=== PATIENT | female | born 2000 | race Caucasian/White ===

== ENCOUNTER 2019-09-15 05:14 | Emergency (ER) | payer OTHER, SELFPAY ==
[2019-09-15 05:17] VITALS: BP 109/57; PULSE 93; RESP 18; TEMP 36.6; O2SAT 99
--- NOTE | 2019-09-15 06:18 | ED.FEMALEGU ---
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 Patient states that abscess is been present for the past 2 weeks. States she is currently 28 weeks and followed by MATERIAL CONTROL CLERK in [place]. Patient states the bump has become more painful and large. She reports subjective fevers but denies any measured fevers. Denies any abdominal pain, vaginal bleeding vaginal discharge or any other symptoms. She has had no previous evaluation for the abscess Related Data Allergies Allergy/AdvReac Type Severity Reaction Status Date / Time No Known Allergies Allergy Unverified 04/01/19 22:47 Review of Systems Review of Systems: Narrative: Gen.: Denies fevers or chills ENT: Denies congestion Respiratory: Denies shortness of breath or cough CV: Denies chest pain or palpitations GI: Denies abdominal pain nausea, emesis or diarrhea see HPI Musculoskeletal: Denies back pain or muscle pain Neuro: Denies numbness, tingling, weakness or focal weakness Skin: Reports abscess Except as documented, all other systems reviewed and negative [facility] Past Medical History Medical History (Updated 09/15/19 @ 07:39 by Israel Powell DO) Social History Social History (Updated 09/15/19 @ 06:20 by Israel Powell DO) Smoking status: Never smoker Exam Narrative: Exam Narrative: APPEARANCE: No acute distress, nontoxic, resting in bed EYES: EOMI HEENT: Normocephalic, atraumatic, OMM RESPIRATORY: No respiratory distress ABDOMINAL: Soft, nontender, nondistended, no rebound or guarding MUSCULOSKELETAl: Moves all extremities. NEURO: Awake and alert. Following commands, speech normal, no focal deficits SKIN:: Warm, dry. In the left mons pubis just medial to the inguinal crease there is an area of tenderness with mild swelling and erythema, the area is firm with no drainage or fluctuance, erythema does not extend into the groin or to the vagina, PSYCHIATRIC: Normal affect/mood, Course Course Emergency Course: Discussed with patient results of workup and diagnosis. Discussed need for follow-up with primary care, proper use of medication, and reasons to return to the emergency department. Patient understands and agrees to current treatment plan Vital Signs Vital signs: Vital Signs Temperature 97.8 F 09/15/19 05:17 Pulse Rate 93 09/15/19 05:17 Respiratory Rate 18 09/15/19 05:17 Blood Pressure 109/57 L 09/15/19 05:17 Pulse Oximetry 99 09/15/19 05:17 Temperature 97.8 F 09/15/19 05:17 Pulse Rate 93 09/15/19 05:17 Respiratory Rate 18 09/15/19 05:17 Blood Pressure 109/57 L 09/15/19 05:17 Pulse Oximetry 99 09/15/19 05:17 MDM - Female Genitourinary MDM Narrative Medical decision making narrative: Patient with area of swelling and tenderness appears to be an infected hair as pubic hair is in the region. There is no current fluctuance or drainage and at this time is not felt that an I&D is indicated his area is firm will start on antibiotics and follow-up as an outpatient with MATERIAL CONTROL CLERK Discharge Plan Discharge Clinical Impression: Abscess of groin, left Patient Disposition: Home, Self-Care Condition: Stable Instructions: Antibiotic Form, Abscess (ED) Additional Instructions: Return for increasing pain, fever or any other symptoms of concern. Follow-up with your MATERIAL CONTROL CLERK in 1 to 2 days for further treatment and evaluation Prescriptions: New cephalexin [Keflex] 500 mg capsule 500 mg PO Q6H Qty: 40 RF: 0 Follow-up/Referrals: Beckie,Richie Cano MD [Primary Care Provider] - 2 Days Time of Disposition: 07:40
[2019-09-15] MEDS: CEPHALEXIN 500 MG CAPSULE PO (07:18)
== END 2019-09-15 08:30 | disposition home or self-care (01) ==
PROVIDERS: Emergency Provider Emergency Medicine; PCP Family Medicine
DX: O99.712 Diseases of the skin and subcutaneous tissue complicating pregnancy, second trimester (principal); L02.214 Cutaneous abscess of groin; Z3A.28 28 weeks gestation of pregnancy
CPT/HCPCS: 99283; A9270

== ENCOUNTER 2019-12-04 12:22 | Emergency (ER) | payer OTHER, SELFPAY ==
[2019-12-04 12:44] VITALS: BP 113/67; PULSE 89; RESP 16; TEMP 37.1; O2SAT 100
--- NOTE | 2019-12-04 12:58 | ED.EXTPRO ---
HPI - Extremity Problem General Chief complaint: Extremity Problem,Nontraumatic Stated complaint: left foot swollen Time Seen by Provider: 12/04/19 12:58 Source: patient and RN notes reviewed History of Present Illness HPI Narrative: Patient is a 19-year-old female that presents the urgent care with complaints of lower extremity swelling. 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 Patient states that she has been home for the last day or 2 and she noticed the swelling last night. Patient states that she has been resting and has not been up on her feet. States that she is currently not breast-feeding and has been increasing her water intake. Patient states that this is her first child. States that the child was breech, requiring the . Otherwise, denies of any complications. No other acute complaints. Denies of any shortness of breath or chest pain. No acute distress noted. Patient read the plan of care. Related Data Home Medications Medication Instructions Recorded Confirmed ferrous sulfate 325 mg PO DAILY 12/04/19 12/04/19 ibuprofen 800 mg Q8-10H PRN 12/04/19 12/04/19 ondansetron 8 mg Q8-10H PRN 12/04/19 12/04/19 oxycodone-acetaminophen 1 tablet Q4-6H PRN 12/04/19 12/04/19 Allergies Allergy/AdvReac Type Severity Reaction Status Date / Time No Known Allergies Allergy Verified 12/04/19 12:47 Review of Systems Review of Systems: Narrative: CONSTITUTIONAL: Denies fever, chills, or sweats. EYES: Denies visual changes, redness, or discharge. ENT: Denies rhinorrhea, congestion, sore throat, or otalgia. CARDIOVASCULAR: Denies chest pain, palpitations, or edema. RESPIRATORY: Denies cough or dyspnea. GASTROINTESTINAL: Denies abdominal pain, nausea, vomiting, or diarrhea. GENITOURINARY: Denies dysuria or hematuria. SKIN: Denies rash or itching. MUSCULOSKELETAL: Reports of bilateral lower extremity swelling NEUROLOGIC: Denies headache, numbness, or weakness. All other systems reviewed are negative, except as documented in HPI. [facility], [facility] Past Medical History Medical History (Updated 12/04/19 @ 13:03 by RICKEY Hester) Social History Social History (Updated 09/15/19 @ 06:20 by NATY Perez Smoking status: Never smoker Gender identity (if verbalized by the patient): Female Comments At the time of my signature, I reviewed and agree with the nursing past medical, surgical, social, and family history. There is no relevant family history pertinent to the patient complaint. Exam Narrative: Exam Narrative: GENERAL: This is a well-nourished, well-developed patient, in no apparent distress. HEAD: normocephalic, atraumatic. EYES: PERRL. Sclera clear/white. Vision is grossly intact. EARS: External ears normal NOSE: External nose normal with no obvious nasal discharge THROAT: Mucous membranes moist NECK: Neck supple CARDIOVASCULAR: Regular rate and rhythm without murmurs, gallops, or rubs. RESPIRATORY: Clear to auscultation. Breath sounds equal bilaterally. No wheezes, rales, or rhonchi. SKIN: warm, intact with no suspicious lesions or rash, good texture and turgor. NEURO: awake, alert, and oriented to person, place and time. There were no obvious focal neurologic abnormalities. EXTREMITIES: 2+ bilateral lower extremity edema (feet) with positive bilateral pedal pulses and capillary refill less than 2 seconds to lower extremities Course Vital Signs Vital signs: Vital Signs Temperature 98.8 F 12/04/19 12:44 Pulse Rate 89 12/04/19 12:44 Respiratory Rate 16 12/04/19 12:44 Blood Pressure 113/67 12/04/19 12:44 Pulse Oximetry 100 12/04/19 12:44 Temperature 98.8 F 12/04/19 12:44 Pulse Rate 89 12/04/19 12:44 Respiratory Rate 16 12/04/19 12:44 Blood Pressure 113/67 12/04/19 12:44 Pulse Oximetry 100 12/04/19 12:44 Reviewed MDM - Extremity (Nontraumatic) MDM Narrative Medical decision making narrative: Advised the patient to
== END 2019-12-04 13:05 | disposition home or self-care (01) ==
PROVIDERS: Emergency Provider Nurse Practitioner Family; PCP Family Medicine
DX: O90.89 Other complications of the puerperium, not elsewhere classified (principal); R60.9 Edema, unspecified
CPT/HCPCS: 99211; G0463

== ENCOUNTER 2021-04-19 10:43 | Emergency (ER) | payer OTHER, SELFPAY ==
--- NOTE | ~2021-04-19 | XR_ITS ---
EXAMINATION: XR hand LT min 3V DATE: 04/19/2021 11:59 INDICATION: Pain around the base of the left thumb post fall TECHNIQUE: Posteroanterior, oblique and lateral views of the left hand were obtained. COMPARISON: None. FINDINGS: Alignment is normal. No fracture. Joint spaces are normal. Soft tissues are unremarkable. IMPRESSION: 1. Negative left hand radiographs. Reviewed, dictated and finalized at location A.
[2021-04-19 11:47] VITALS: BP 110/69; PULSE 75; RESP 16; TEMP 36.9; O2SAT 99
--- NOTE | 2021-04-19 12:53 | ED.UPPEXIN ---
HPI - Extremity Injury (Upper) General Chief Complaint: Extremity Injury, Upper Stated Complaint: left hand injury History of Present Illness HPI narrative: This is a 21-year-old female comes in complaining of right hand pain according to patient she fell yesterday and put her hand down when she went down for the fall she wants to make sure that she does not have any fracture because is painful Related Data Home Medications Medication Instructions Recorded Confirmed ferrous sulfate 325 mg PO DAILY 12/04/19 12/04/19 ibuprofen 800 mg Q8-10H PRN 12/04/19 12/04/19 famotidine 04/19/21 Allergies Allergy/AdvReac Type Severity Reaction Status Date / Time No Known Allergies Allergy Verified 12/04/19 12:47 Review of Systems Review of Systems: Extremity: Right hand and thumb pain with small amount of swelling All systems reviewed & are unremarkable except as noted in HPI and below PMFSH Past Medical History Medical History (Updated 04/19/21 @ 12:54 by Seun Connor, EDENILSON) Social History Social History (Updated 09/15/19 @ 06:20 by Israel Powell DO) Smoking status: Never smoker Gender identity (if verbalized by the patient): Female Comments At time as signature, I have reviewed and agree with nursing past medical, social, surgical and family history. Please see nursing chart for further information. There is no relevant family history pertinent to the presenting complaint. Exam Narrative: GENERAL:Well-appearing, well-nourished, and in no acute distress. HEAD:Normocephalic, atraumatic. EYES: PERRLA and EOMI. ENT: Nares clear, no rhinorrhea or epistaxis. Mucous membranes moist. NECK: Supple. CHEST: Clear to auscultation. No respiratory distress. HEART: Regular rate and rhythm. ABDOMEN: Soft, nontender, nondistended, normal active bowel sounds. EXTREMITIES: Decreased range of motion right hand motion due to pain with mild edema. SKIN: Warm, dry, no rash. NEURO: No focal deficits. Alert and oriented x3. 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 Negative for fracture Vital Signs Vital signs: Vital Signs Temperature 98.4 F 04/19/21 11:47 Pulse Rate 75 04/19/21 11:47 Respiratory Rate 16 04/19/21 11:47 Blood Pressure 110/69 04/19/21 11:47 Pulse Oximetry 99 04/19/21 11:47 Temperature 98.4 F 04/19/21 11:47 Pulse Rate 75 04/19/21 11:47 Respiratory Rate 16 04/19/21 11:47 Blood Pressure 110/69 04/19/21 11:47 Pulse Oximetry 99 04/19/21 11:47 MDM - Extremity Injury (Upper) Differential Diagnosis Differential diagnosis: Likely sprain and strain of wrist, finger sprain, dislocation of finger, fracture of hand, dislocation of shoulder and fracture of humerus Discharge Plan Discharge Clinical Impression: Sprain of hand, right Qualifiers: Encounter type: initial encounter Qualified Code(s): S63.91XA - Sprain of unspecified part of right wrist and hand, initial encounter Patient Disposition: Home, Self-Care Condition: Stable Instructions: Antibiotic Form, Hand Sprain (ED) Additional Instructions: Avoid weight bearing until the pain subsides. Ice to the area 20-30 minutes 4-6 times a day Elevate above heart Elastic wrap or orthopedic splint as directed for comfort for the next 5-7 days Tylenol for lesser pain Ibuprofen regularly for the next 2-3 days for the inflammation Follow up with your primary care provider if the condition is not improving within 1 week or sooner if the condition worsens with numbness, tingling, decrease sensation with weakness to seek ER. Prescriptions: New ibuprofen 600 mg tablet 600 mg PO TID PRN (Reason: fever or pain) Qty: 20 RF: 0 No Action famotidine 40 mg Tablet RF: 0 ibuprofen 800 mg tablet 800 mg Q8-10H PRN (Reason: Pain) RF: 0 ferrous sulfate 325 mg (65 mg iron) tablet,delayed release (DR/EC) 325 mg PO DAILY RF: 0 Follow-up/Referrals: UNKNOWN,DOCTOR [Primary Care Provider] -
== END 2021-04-19 13:16 | disposition home or self-care (01) ==
PROVIDERS: Emergency Provider Nurse Practitioner Family
DX: S63.91XA Sprain of unspecified part of right wrist and hand, initial encounter (principal); Z79.1 Long term (current) use of non-steroidal anti-inflammatories (NSAID); W19.XXXA Unspecified fall, initial encounter
CPT/HCPCS: 73130; 99213; G0463

== ENCOUNTER 2021-05-23 09:35 | Emergency (ER) | payer OTHER, SELFPAY ==
[2021-05-23 09:44] VITALS: BP 138/75; PULSE 79; RESP 18; TEMP 36.9; O2SAT 99
--- NOTE | 2021-05-23 10:15 | ED.GENADULT ---
HPI - General Adult General Chief complaint: Wound/Laceration <Sharan Kaur PA-C - Last Filed: 05/23/21 10:24> Stated complaint: finger lac <Sharan Kaur PA-C - Last Filed: 05/23/21 10:24> Time Seen by Provider: 05/23/21 09:36 <Sharan Kaur PA-C - Last Filed: 05/23/21 10:24> Source: patient <Sharan Kaur PA-C - Last Filed: 05/23/21 10:24> Mode of arrival: ambulatory <Sharan Kaur PA-C - Last Filed: 05/23/21 10:24> Limitations: no limitations <Sharan Kaur PA-C - Last Filed: 05/23/21 10:24> History of Present Illness HPI narrative: Patient a 23-year-old female who presents with skin avulsion to the distal phalanx left ring finger that occurred while slicing apples she notes aching pain worse with touch and activity. Denies any other complaints or injuries. Occurred just prior to arrival <Sharan Kaur PA-C - Last Filed: 05/23/21 10:24> Related Data Home medications: Home Medications Medication Instructions Recorded Confirmed ferrous sulfate 325 mg PO DAILY 12/04/19 12/04/19 ibuprofen 800 mg Q8-10H PRN 12/04/19 12/04/19 famotidine 04/19/21 <Sharan Kaur PA-C - Last Filed: 05/23/21 10:24> Allergies/adverse reactions: Allergies Allergy/AdvReac Type Severity Reaction Status Date / Time No Known Allergies Allergy Verified 05/23/21 09:54 <Sharan Kaur PA-C - Last Filed: 05/23/21 10:24> Review of Systems Review of Systems: CONSTITUTIONAL: Denies fever, chills, or sweats. SKIN: Positive for skin avulsion. MUSCULOSKELETAL: Denies decreased range of motion or strength NEUROLOGIC: Denies numbness, or weakness. <Sharan Kaur PA-C - Last Filed: 05/23/21 10:24> PMFSH Past Medical History Medical History: Medical History <Sharan Kaur PA-C - Last Filed: 05/23/21 10:24> Social History Social History: Social History Smoking status: Never smoker Gender identity (if verbalized by the patient): Female <Sharan Kaur PA-C - Last Filed: 05/23/21 10:24> Exam Narrative: GENERAL: Well-appearing, well-nourished, and in no acute distress. HEAD: Normocephalic, atraumatic. EYES: PERRLA and EOMI. ENT: Nares clear, no rhinorrhea or epistaxis. Mucous membranes moist. EXTREMITIES: Normal range of motion. No edema. SKIN: Warm, dry, no rash. 1 cm skin avulsion of the distal phalanx of the left ring finger superficial in nature NEURO: No focal deficits. Alert and oriented x3. Neurovascularly intact PSYCH: Normal mood and affect. <Sharan Kaur PA-C - Last Filed: 05/23/21 10:24> Course Course Emergency Course: Patient evaluated the emergency department had hemostasis achieved with LAT Surgicel 4 x 4 and Coban and she will follow up accordingly given reasons to return ABCs and vital signs intact and stable <Sharan Kaur PA-C - Last Filed: 05/23/21 10:24> Vital Signs Vital signs: Vital Signs Temperature 98.5 F 05/23/21 09:44 Pulse Rate 79 05/23/21 09:44 Respiratory Rate 18 05/23/21 09:44 Blood Pressure 138/75 05/23/21 09:44 Pulse Oximetry 99 05/23/21 09:44 Temperature 98.5 F 05/23/21 09:44 Pulse Rate 64 05/23/21 10:43 Respiratory Rate 18 05/23/21 10:43 Blood Pressure 100/70 05/23/21 10:43 Pulse Oximetry 100 05/23/21 10:43 <TERESA Alexander Last Filed: 05/23/21 10:24> Procedures Other Procedure Procedure 1: Other Procedure: Patient's wound was cleaned let Surgicel 4 x 4 and Coban used to achieve hemostasis neurovascularly intact pre and post procedure no complications <TERESA Alexander Last Filed: 05/23/21 10:24> Medical Decision Making MDM Narrative Medical decision making narrative: Patients injury or pain is consistent with musculoskeletal etiology. No signs of neurolog
--- NOTE | 2021-05-23 10:40 | PC.NURSE ---
dressing intact no bleeding noted
[2021-05-23 10:43] VITALS: BP 100/70; PULSE 64; RESP 18; O2SAT 100
== END 2021-05-23 10:50 | disposition home or self-care (01) ==
PROVIDERS: Emergency Provider General Practice; PCP Family Medicine
DX: S61.215A Laceration without foreign body of left ring finger without damage to nail, initial encounter (principal); W26.0XXA Contact with knife, initial encounter
CPT/HCPCS: 99282

== ENCOUNTER 2021-06-03 16:16 | Emergency (ER) | payer OTHER, SELFPAY ==
--- NOTE | 2021-06-03 16:21 | ED.URI ---
HPI - URI/Sore Throat General Chief Complaint: Upper Respiratory Infection Stated Complaint: Cough,Sore Throat Time Seen by Provider: 06/03/21 16:21 Source: patient, RN notes reviewed and old records reviewed Mode of arrival: ambulatory Limitations: no limitations History of Present Illness HPI Narrative: 21-year-old female presents to the [facility] with complaints of cough and sore throat for the last 3 days. MD elicited complaint: cough and sore throat Related Data Allergies Allergy/AdvReac Type Severity Reaction Status Date / Time No Known Allergies Allergy Verified 06/03/21 16:22 Review of Systems Review of Systems: All systems reviewed & are unremarkable except as noted in HPI and below Constitutional: Constitutional: Reports no additional constitutional complaints, Denies chills and Denies fever(s) Eyes: Eyes: Reports no additional eye complaints ENT: Reports as per HPI and Reports sore throat Cardiovascular: Cardiovascular: Reports no additional cardiovascular complaints and Denies chest pain Respiratory: Respiratory: Reports as per HPI, Reports cough, Denies dyspnea and Denies wheezing Gastrointestinal: Gastrointestinal: Reports no additional gastrointestinal complaints Genitourinary: Genitourinary: Reports no additional female genitourinary complaints Musculoskeletal: Musculoskeletal: Reports no additional musculoskeletal complaints Integumentary/Breasts: Skin/Breast: Reports system reviewed and no additional complaints, except as docu Neurologic: Reports system reviewed and no additional complaints, except as documented Hematologic/Lymphatic: Hematologic/Lymphatic: Reports no additional hematologic/lymphatic complaints PMFSH Past Medical History Medical History Social History Social History Smoking status: Never smoker Gender identity (if verbalized by the patient): Female Comments At the time of my signature, I reviewed and agree with the nursing past medical, surgical, social, and family history. There is no relevant family history pertinent to the patient complaint. Exam Const: General: healthy appearing, no acute distress and alert Nutritional Appearance: well nourished Orientation/consciousness: patient oriented x3 Limitations: no limitations and other limitations (Influence by marijuana) HENMT: Head: normal to inspection Ears: external ears normal, TM's normal bilaterally (Scarring noted from tubes as a child) and EAC's normal General nose exam: Normal external nose present Face and sinus: normal facial exam Mouth: Yes Normal oral and palatal mucosa present and Yes lip normal Teeth and gingiva: dentition normal Throat: posterior oropharynx normal, uvula midline and tonsils absent Eyes: Conjunctivae: conjunctivae normal Pupils: Equal, round and reactive pupils present Neck: Neck: normal visual inspection, no lymphadenopathy and no meningeal signs Chest: Chest palpation & inspection: normal inspection of the chest Resp: Effort & Inspection: normal respiratory effort and no use of accessory muscles Auscultation: clear to auscultation bilaterally, no crackles, no rales, no rhonchi and no wheezes Cardio: Rate: regular rate Rhythm: regular rhythm Back/Spine/Pelvis: Back: no CVA tenderness Skin: General skin exam: normal color Rashes: no rashes Neuro: General: patient oriented x3, moves all extremities, no meningeal signs and no focal motor deficits Speech: normal speech Gait exam (Neuro): Normal gait present Extrem: General: normal to inspection Psych: Appearance: grossly normal and well kempt Mental Status: mental status grossly normal Affect: normal affect Attitude: cooperative Thought content: Yes Normal thought content present Course Course Emergency Course: Discharge instructions reviewed with patient, as well as provided in writing per nursing staff. The
[2021-06-03 16:24] VITALS: BP 111/50; PULSE 85; RESP 16; TEMP 37.5; O2SAT 99
[2021-06-03 16:33] VITALS: BP 111/50; PULSE 85; RESP 16; TEMP 37.5; O2SAT 99
== END 2021-06-03 16:44 | disposition home or self-care (01) ==
PROVIDERS: Emergency Provider Nurse Practitioner; PCP Family Medicine
DX: J02.8 Acute pharyngitis due to other specified organisms (principal); K21.9 Gastro-esophageal reflux disease without esophagitis
CPT/HCPCS: 87081; 87880; 99213; G0463

== ENCOUNTER 2021-12-27 12:16 | Emergency (ER) | payer OTHER, SELFPAY ==
[2021-12-27 12:25] VITALS: BP 114/61; PULSE 87; RESP 18; TEMP 36.8; O2SAT 98
--- NOTE | 2021-12-27 12:25 | ED.URI ---
HPI - URI/Sore Throat General Chief Complaint: Upper Respiratory Infection Stated Complaint: sore throat Time Seen by Provider: 12/27/21 12:25 Source: patient and RN notes reviewed Mode of arrival: ambulatory Limitations: no limitations History of Present Illness HPI Narrative: 21-year-old female presented for complaint of left ear pain and sore throat for 3 days. She states at the onset she had a fever, sinus congestion, and vomiting which has since improved. Fever was 101 at home. She denies cough, shortness of breath, wheezing, headache, body aches. She denies sick contacts. She has not been vaccinated for COVID. She has been vaccinated for the flu. She has not taken anything for her symptoms. Daily smoker. MD elicited complaint: cough Related Data Home Medications Medication Instructions Recorded Confirmed No Home Medications 12/27/21 12/27/21 Allergies Allergy/AdvReac Type Severity Reaction Status Date / Time No Known Allergies Allergy Verified 06/03/21 16:22 Review of Systems Review of Systems: CONSTITUTIONAL: denies malaise EYES: Denies visual changes, redness, or discharge ENT: Reports otalgia, sore throat CARDIOVASCULAR: Denies chest pain, palpitations, edema RESPIRATORY: Denies dyspnea GASTROINTESTINAL: Denies abdominal pain, nausea SKIN: Denies rash or itching MUSCULOSKELETAL: Denies myalgia NEUROLOGIC: Denies headache PMFSH Past Medical History Medical History Social History Social History Smoking status: Never smoker Gender identity (if verbalized by the patient): Female Exam Narrative: GENERAL: well-appearing HEAD: Normocephalic EYES: conjunctivae clear ENT: Mucous membranes moist. TMs pearly higginbotham with normal light reflex bilaterally, canals without erythema; no tragal tenderness. Oropharynx erythematous without lesions or exudate, tonsils absent; no drooling, no hoarseness, no trismus, uvula midline. No tripod positioning, muffled voice, soft palate or pharyngeal wall bulging NECK: Supple. No lymphadenopathy CHEST: Clear to auscultation, breath sounds equal. HEART: Regular rate and rhythm. No murmur heard. SKIN: Warm, dry, no rash. NEURO: Alert and oriented x3. PSYCH: Normal mood and affect Course Course Emergency Course: Patient is aware of diagnosis, understands and agrees to treatment plan. Anticipatory guidance given. Patient agrees to follow-up as directed and is aware of reasons to seek care at the emergency department. Portions of this record may have been created with voice recognition software Level of Care: Express Care Visit Vital Signs Vital signs: reviewed MDM - URI/Sore Throat MDM Narrative Medical decision making narrative: Pt presented for sore throat and left ear pain, PE unremarkable. Strep negative. Differential Diagnosis Differential diagnosis: Likely upper respiratory infection, sinusitis and viral infection Discharge Plan Discharge Clinical Impression: Allergic rhinitis Qualifiers: Allergic rhinitis trigger: unspecified Allergic rhinitis seasonality: seasonal Qualified Code(s): J30.2 - Other seasonal allergic rhinitis Patient Disposition: Home, Self-Care Condition: Stable Instructions: Antibiotic Form, Allergic Rhinitis (ED) Additional Instructions: Rapid strep swab was negative today You will be notified in a few days if the culture comes back positive for strep, and appropriate antibiotics will be called in at that time. if symptoms are due to a viral illness, it is not treated with antibiotics. Viral symptoms can be present for up to 10-14 days. Recommend Flonase spray and Zyrtec for sinus congestion Tylenol 1000mg every 8 hours as needed for pain/fever Soft foods, cool liquids, warm tea. Gargle with warm saltwater twice a day. Chloraseptic spray and throat lozenges as needed for sore throat.
== END 2021-12-27 12:47 | disposition home or self-care (01) ==
PROVIDERS: Emergency Provider Nurse Practitioner Family; PCP Family Medicine
DX: J30.2 Other seasonal allergic rhinitis (principal); Z28.310 Unvaccinated for COVID-19
CPT/HCPCS: 87081; 87880; 99213; G0463

== ENCOUNTER 2022-04-02 11:44 | Emergency (ER) | payer OTHER, SELFPAY ==
[2022-04-02 11:55] VITALS: BP 111/70; PULSE 80; RESP 16; TEMP 36.4; O2SAT 100
[2022-04-02 11:56] VITALS: BP 111/70; PULSE 80; RESP 16; TEMP 36.4; O2SAT 100
--- NOTE | 2022-04-02 11:57 | ED.ABDPAIN ---
HPI - Abdominal Pain General Chief Complaint: Abdominal Pain Stated Complaint: Abdominal Pain, Diarrhea, Headache Time Seen by Provider: 04/02/22 11:57 Source: patient, RN notes reviewed and old records reviewed Mode of arrival: ambulatory Limitations: no limitations History of Present Illness HPI narrative: 22-year-old female presents to the [facility] with complaints of abdominal pain, diarrhea, headache for 5 days. Patient states the symptoms of the abdominal pain have gotten worse. States that she is extremely nauseous and in a lot of pain. Patient stating this is the worst pain of my life. Denies chances of . Denies any urinary symptoms. Denies any fevers. Related Data Home Medications Medication Instructions Recorded Confirmed etonogestrel 0.12 mg-ethinyl 1 vag ring vaginal DIRECTED 04/02/22 04/02/22 estradiol 0.015 mg/24 hr vaginal ring (EluRyng) Allergies Allergy/AdvReac Type Severity Reaction Status Date / Time No Known Allergies Allergy Verified 04/02/22 11:56 Review of Systems Review of Systems: All systems reviewed & are unremarkable except as noted in HPI and below Constitutional: Constitutional: Reports no additional constitutional complaints, Denies chills and Denies fever(s) Eyes: Eyes: Reports no additional eye complaints ENT: Reports system reviewed and no additional complaints, except as documented Cardiovascular: Cardiovascular: Reports no additional cardiovascular complaints Respiratory: Respiratory: Reports no additional respiratory complaints Gastrointestinal: Gastrointestinal: Reports as per HPI, Reports abdominal pain, Reports diarrhea and Reports nausea Musculoskeletal: Musculoskeletal: Reports no additional musculoskeletal complaints Integumentary/Breasts: Skin/Breast: Reports system reviewed and no additional complaints, except as docu Neurologic: Reports system reviewed and no additional complaints, except as documented Psychiatric: Psychiatric: Reports no additional psychiatric complaints Allergic/Immunologic: Allergic/Immunologic: Reports no additional allergic/immunologic complaints [facility] Past Medical History Medical History Social History Social History Smoking status: Never smoker Gender identity (if verbalized by the patient): Female Comments At the time of my signature, I reviewed and agree with the nursing past medical, surgical, social, and family history. There is no relevant family history pertinent to the patient complaint. Exam Const: General: healthy appearing, no acute distress and alert Nutritional Appearance: well nourished and obese Orientation/consciousness: patient oriented x3 Limitations: no limitations HENMT: Head: normal to inspection Ears: external ears normal Eyes: General: appearance normal, both eyes and all related structures Pupils: Equal, round and reactive pupils present Neck: Neck: normal visual inspection, no lymphadenopathy and no meningeal signs Chest: Chest palpation & inspection: normal inspection of the chest Resp: Effort & Inspection: normal respiratory effort and no use of accessory muscles Auscultation: clear to auscultation bilaterally, no crackles, no rales, no rhonchi and no wheezes Cardio: Rate: regular rate Rhythm: regular rhythm GI: GI Palp: Yes Soft to palpation, Yes Tenderness to palpation present (GI), No Guarding due to palpation present (GI) and Yes Rebound tenderness present (Generalized) Back/Spine/Pelvis: Back: no CVA tenderness Cervical Spine: normal cervical lordosis Thoracic/Lumbar Spine: thoracic and lumbar spine normal to inspection Skin: General skin exam: normal color Rashes: no rashes Wounds: no wounds Neuro: General: patient oriented x3, moves all extremities, no meningeal signs and no focal motor deficits Cranial nerves: Yes Equal, round and re
== END 2022-04-02 12:20 | disposition short-term general hospital (02) ==
PROVIDERS: Emergency Provider Nurse Practitioner
DX: R10.84 Generalized abdominal pain (principal); R19.7 Diarrhea, unspecified
CPT/HCPCS: 81003; 99212; G0463